=== PATIENT | female | born 1945 | race Hispanic/Latino ===

== ENCOUNTER 2019-08-05 11:57 | Emergency (ER) | payer MEDICARE ==
[2019-08-05] MEDS ORDERED: LORazepam 2 MG/ML VIAL IM PRN (15:02)
[2019-08-05] MEDS ORDERED: diphenhydrAMINE 50 MG/ML VIAL IM ONE (15:02)
[2019-08-05] MEDS ORDERED: HALOPERIDOL LACTATE 5 MG/1 ML INJ IM PRN (15:02)
--- NOTE | 2019-08-05 15:19 | Emergency Department Report ---
ED General Adult HPI - General Chief complaint: High BP Stated complaint: HYPERTENSION Time Seen by Provider: 08/05/19 14:53 Source: family, EMS ( EMS documentation not available at time of chart dictation ), RN notes reviewed Mode of arrival: Stretcher Limitations: Other (The patient is psychotic) - History of Present Illness Initial comments: Patient is a 73-year-old female. She is not known to myself previously. She has a history of paranoid schizophrenia. She is currently a patient on a 1013, from [facility]. The patient is accompanied by her son, and her , who provide the history of present illness. The patient has suffered a psychotic break, this is her first break in the past 12 years. There were no obvious inciting factors that family can recall, with the exception of noncompliance with her maintenance medications. She recently restarted her Lexapro in late February. She was seen at another hospital, [facility], and as per family, had extensive medical work-up, placed on a 1013, and subseque ntly transferred to inpatient psychiatric facility. As per [facility] psychiatric facility documentation, the patient was sent to the emergency room for increased blood pressure, with the patient refusing to take her medications to bring down her blood pressure. In the emergency room, the patient is floridly psychotic, and agitated. She is not able to answer open ended her close ended questions. As per family, there is no trauma, nausea, vomiting, diarrhea, fevers or chills that they are aware of. The symptoms have been getting worse over the past couple days to weeks. No exacerbating factors or relieving factors that family is aware of, they do not believe the patient has started any new medications. -: Gradual, days(s) Quality: other Consistency: other Improves with: other Worsens with: other Associated Symptoms: other - Related Data Previous Rx's Medication Instructions Recorded Last Taken Type Nitrofurantoin Barton/M-Cryst 100 mg PO Q12HR #14 capsule 08/05/19 Unknown Rx [Macrobid CAP] Allergies Allergy/AdvReac Type Severity Reaction Status Date / Time No Known Allergies Allergy Verified 08/05/19 14:57 ED Review of Systems ROS: Stated complaint: HYPERTENSION Other details as noted in HPI Comment: Unobtainable due to pts medical conditions (The patient is psychotic. Please see the history of present illness for review of systems) ED Past Medical Hx - Past Medical History Previous Medical History?: Yes Hx Psychiatric Treatment: Yes (MDD,) - Surgical History Past Surgical History?: No - Social History Smoking Status: Unknown if ever smoked Substance Use Type: None - Medications Home Medications: Home Medications Medication Instructions Recorded Confirmed Last Taken Type Nitrofurantoin Barton/M-Cryst 100 mg PO Q12HR #14 capsule 08/05/19 Unknown Rx [Macrobid CAP] ED Physical Exam - General Limitations: Other (Patient agitated and psychotic) General appearance: alert, in no apparent distress - Head Head exam: Present: atraumatic, normocephalic - Eye Eye exam: Present: normal appearance, EOMI - ENT ENT exam: Present: normal exam, normal orophraynx, mucous membranes moist, normal external ear exam - Neck Neck exam: Present: normal inspection, full ROM. Absent: tenderness, meningismus - Respiratory Respiratory exam: Present: normal lung sounds bilaterally. Absent: respiratory distress - Cardiovascular Cardiovascular Exam: Present: normal rhythm, tachycardia, normal heart sounds. Absent: systolic murmur, diastolic murmur, rubs, gallop - GI/Abdominal GI/Abdominal exam: Present: soft. Absent: distended, tenderness, guarding, halie ound, rigid, pulsatile mass - Extremities Exam Extremities exam: Present: normal inspection, full ROM, other (2+ pulses noted in the bilateral upper and lower extremities. There is no palpable cord. negative Homans sign. Muscular compartments are soft. The pelvis is stable.). Absent: pedal edema, calf tenderness - Back Exam Back exam: Present: normal inspection, full ROM. Absent: tenderness, CVA tenderness (R), CVA tenderness (L), paraspinal tenderness, vertebral tenderness - Neurological Exam Neurological exam: Present: other (Patient agitated and psychotic. Speaking in full sentences, but thought structure is nonsensical. Moving 4 extremities spontaneously. Unable to perform detailed neurologic examination secondary to florid psychosis) - Psychiatric Psychiatric exam: Present: agitated, anxious - Skin Skin exam: Present: warm, dry, intact, normal color. Absent: rash ED Course Vital Signs 08/05/19 08/05/19 08/05/19 13:50 15:53 17:00 Temperature 98.0 F Pulse Rate 98 H 97 H Respiratory 16 16 18 Rate Blood Pressure 159/96 Blood Pressure 154/76 134/65 [Left] O2 Sat by Pulse 98 99 98 Oximetry 08/05/19 18:00 Temperature 98.3 F Pulse Rate 100 H Respiratory 14 Rate Blood Pressure Blood Pressure 131/59 [Left] O2 Sat by Pulse 98 Oximetry - Reevaluation(s) Reevaluation #1: 08/05/19 16:10 Differential diagnosis, including but not limited to: Psychosis, urinary tract infection, pneumonia, noncompliance, intracranial lesion, thyroid derangement, medical clearance Assessment and plan: 73-year-old female who is floridly psychotic, presenting with manifestations of florid psychosis. She is afebrile with reassuring vital signs, blood pressure is reviewed and appreciated, and does not require emergent medical intervention at this time. Family has given verbal consent for chemical sedation, for acquisition of diagnostics to exclude potentially emergent medical conditions. CT scan of the brain, laboratory studies, urinalysis, EKG, x-ray of the chest have been ordered. The family has also requested that they do not like the current facility where the patient is at, and they would like to be transferred to another psychiatric facility. I discussed this with our psychiatric liaison, Ms. Bre Velazquez The patient currently has an armband, from the psychiatric facility and a sitter. Therefore, she is under the care of a psychiatrist at [place]. Zandra Maribeth advises that if the patient's family is dissatisfied with her care, they should discuss this with her treating psychiatrist of record, and requested transfer. I have advised the family of this recommendation. We will continue to medically evaluate the patient. Reevaluation #2: 08/05/19 17:55 Patient resting comfortably at this time and in no acute distress. Tachycardia resolved. Blood pressure 119/70. Laboratory studies reviewed and appreciated. TSH is reviewed and appreciated, this patient's condition is unlikely to be consistent with symptomatic hypothyroidism, and she can follow-up with an outpatient primary care doctor for her incidental elevation in TSH X-ray the chest unremarkable, noncontrast CT scan of the brain unremarkable, urinalysis is pending at this time. At the moment, we have not identified any c ondition that would require emergency medical hospitalization. Reevaluation #3: 08/05/19 19:05 Patient in no acute distress. Blood pressure in the 140s, 150s. Urinalysis r eviewed and appreciated. Ceftriaxone ordered. She will be discharged with Macrobid. Explained significance of findings to patient's family. ED Medical Decision Making - Lab Data Result diagrams: 08/05/19 16:23 08/05/19 16:23 Vital Signs 08/05/19 08/05/19 13:50 15:53 Temperature 98.0 F Pulse Rate 98 H Respiratory 16 16 Rate Blood Pressure 159/96 Blood Pressure 154/76 [Left] O2 Sat by Pulse 98 99 Oximetry - EKG Data -: EKG Interpreted by Me EKG shows normal: sinus rhythm Rate: tachycardia - EKG Data When compared to previous EKG there are: previous EKG unavailable 08/05/19 17:56 There is no prior EKG available for comparison. Sinus tachycardia, left axis deviation, left anterior fascicular block, interventricular conduction delay, motion artifact, left ventricular hypertrophy. No prior for comparison. Not a STEMI. - Radiology Data Radiology results: pending, report reviewed, image reviewed X-ray of the chest is negative for acute disease. Noncontrast CT scan of the brain: Critical care attestation.: If time is entered above; I have spent that time in minutes in the direct care of this critically ill patient, excluding procedure time. ED Disposition Clinical Impression: Medical clearance for psychiatric admission Disposition: [id number]/[id number] PSY HOSP/PSY UNIT Is pt being admited?: No Does the pt Need Aspirin: No Condition: Stable Additional Instructions: Cultures were sent today, and results will be available in the next 3 to 5 days. Please have your primary care doctor or medical physician contact the medical records department to obtain culture results. Take the antibiotics as directed. Psychiatric care as dictated by receiving psychiatrist. Patient does not appear to have an emergent medical condition at this time which would preclude psychiatric admission, hospitalization, consultation and placement. Elevated blood pressure is likely a functioning of psychosis, therefore, management of psychosis is likely to improve the patient's high blood pressure. In addition, patient may consider diet and lifestyle modifications for incidental elevated blood pressure, and have this followed up by a primary medical doctor within the next month. Incidental nonemergent laboratory abnormalities were noted today, which require outpatient follow-up, recommend outpatient medical follow-up in 4 to 6 weeks for these incidental nonemergent abnormal findings. Please return to the emergency room right away with new, worsened or different symptoms, or symptoms not present on the initial emergency room evaluation. Referrals: GOOD MARTIN MD [Staff Physician] - 3-5 Days [facility] [Provider Group] - 3-5 Days [facility] [Provider Group] - 3-5 Days
[2019-08-05 16:41] LABS: Hematocrit 44.4 % (30.3-42.9); Hemoglobin 14.6 gm/dl (10.1-14.3); Mean Corpuscular HGB Conc 33 % (30-34); Mean Corpuscular Volume 84 fl (79-97); Platelet Count 246 K/mm3 (140-440); Red Blood Count 5.29 M/mm3 (3.65-5.03); Red Cell Distribution Width 13.2 % (13.2-15.2)
[2019-08-05 16:52] LABS: INR 1.04 (0.87-1.13)
--- NOTE | 2019-08-05 16:55 | XRay Report ---
CHEST 1 VIEW INDICATION / CLINICAL INFORMATION: psychosis. COMPARISON: None available. FINDINGS: SUPPORT DEVICES: None. HEART / MEDIASTINUM: No significant abnormality. LUNGS / PLEURA: No significant pulmonary or pleural abnormality. No pneumothorax. ADDITIONAL FINDINGS: No significant additional findings. IMPRESSION: 1. No acute findings. Signer Name: Syl Mata MD Signed: 08/05/2019 4:50 PM Workstation Name: [id number]
[2019-08-05 17:01] LABS: Alanine Aminotransferase 14 units/L (7-56); Albumin 4.7 g/dL (3.9-5); BUN/Creatinine Ratio 26; Blood Urea Nitrogen 23 mg/dL (7-17); Calcium 10.5 mg/dL (8.4-10.2); Hemolysis Index 2
--- NOTE | 2019-08-05 18:04 | Cat Scan Report ---
CT head/brain wo con INDICATION: Psychosis, altered mental status. TECHNIQUE: Routine CT head without contrast. All CT scans at this location are performed using CT dos e reduction for ALARA by means of automated exposure control. COMPARISON: None. FINDINGS: BRAIN / INTRACRANIAL CONTENTS: No acute hemorrhage, mass effect, midline shift, or hydrocephalus. No appreciable acute large territorial or lacunar infarct. No chronic infarct. Age-commensurate ventricu lar and cisternal/sulcal prominence. ORBITS: No significant abnormality of visualized orbits. SINUSES / MASTOIDS: There is a mucous retention cyst in the left maxillary sinus. ADDITIONAL FINDINGS: None. IMPRESSION: 1. No acute intracranial abnormality. Signer Name: Gentry Leach MD Signed: 08/05/2019 6:00 PM Workstation Name: [id number]
[2019-08-05 18:53] LABS: Bacteria,Urine 1+ /HPF (Negative); Bilirubin,Urine NEG (Negative); Blood,Urine NEG (Negative); Color,Urine Amber (Yellow); Mucus,Urine FEW /HPF; Protein,Urine <15 mg/dL mg/dL (Negative); Urobilinogen,Urine < 2.0 mg/dL (<2.0)
[2019-08-05] MEDS ORDERED: NITROFURANTOIN MONOHYD/M-CRYST 100 MG CAP PO ONE (18:57)
[2019-08-05] MEDS ORDERED: LIDOCAINE-MPF (1%) 10 MG/1 ML VIAL 5 ML INFILTRATI ONE (18:58)
[2019-08-05] MEDS ORDERED: cefTRIAXone/NS 1 GM/50 ML 1 GM/50 ML BAG IV ONE ×2 (19:45→19:51)
[2019-08-06 03:13] VITALS: BP 115/64
== END 2019-08-06 03:40 ==
LOC: ED 11:57
DX: I10 Essential (primary) hypertension (principal); Z02.79 Encounter for issue of other medical certificate
CPT/HCPCS: 36415; 70450; 71045; 80053; 81001; 82550; 83735; 84443; 85027; 85610; 87086; 93005; 93010; 96365; 96372; 99285; J0696; J1200; J1630; J2060; 80320; G0480